=== PATIENT | male | born 1950 | race Caucasian/White ===

== ENCOUNTER → 2018-08-28 | Outpatient (CLI) | payer OTHER ==
--- NOTE | 2018-08-29 15:06 | PATH ---
[facility] [place] [address] PATHOLOGY RPT PROCEDURE Name: MCKENZIE CALDERON Room #: REG JOANIE Willson.#: [id number] ������������������ Admission: 08/28/18 ������������������ Date of : 52 Discharge: Report #: [id number] Path Case #: [id number] [facility] Accession Number: [id number] . 01 Material submitted: . PART A: colon - SIGMOID POLYP X5. Modifiers: sigmoid PART B: rectum - RECTAL POLYP X2 . 01 Clinical history: . Pre-OP DX: Screening Post-OP DX: Polyps . 02 Diagnosis: A. Polyp x5, sigmoid polyp, endoscopic biopsy: - All fragments showing hyperplastic polyp. - Negative for dysplasia. . B. Polyp x2, rectal polyp, endoscopic biopsy: - Largest fragment showing a tubulovillous adenoma; negative for high-grade dysplasia. - Smaller polyps showing tubular adenoma; negative for high-grade dysplasia. - Cauterized margin showing unremarkable mucosa and focal adenomatous mucosa (please see comment). . (IUV:alvina; 08/29/2018) QMS/08/29/2018 . 02 Comment: Please correlate with endoscopic findings for complete removal of these polyps. (IUV:alvina; 08/29/2018) . 02 Electronically signed: . Bettina Danielson MD, Pathologist NPI- [id number] . 01 Gross description: . A. Received in formalin labeled "Mckenzie Calderon, sigmoid polyp," are 5 segments of foley soft tissue measuring 1.3 x 0.9 x 0.3 cm in aggregate dimensions and ranging from 0.3 to 0.5 cm in maximum dimension. The specimen is submitted entirely in cassette A1. . B. Received in formalin labeled "Mckenzie Calderon, rectal polyps," is a 0.9 x 0.6 x 0.6 cm polypoid piece of foley soft tissue. The margin is inked and the tissue is sectioned perpendicular to the margin and submitted in its entirely in cassette B1 and B2. Additionally received in the same [address] [address] PATHOLOGY RPT PROCEDURE Name: MCKENZIE CALDERON Room #: REG [facility].#: [id number] ������������������ Admission: 08/28/18 ������������������ Date of : 52 Discharge: Report #: [id number] Path Case #: [id number] container is a 0.8 x 0.5 x 0.5 cm polypoid piece of foley soft tissue. The margin is inked and the specimen is sectioned perpendicular to the margin and entirely submitted in cassette B3 and B4. Also received in the container is a 0.7 x 0.4 x 0.4 cm polypoid piece of foley soft tissue. The presumed margin is inked and the specimen is sectioned perpendicular to the margin and entirely submitted in cassette B5. (TSD; 08/28/2018) TOB/TOB . 02 Pathologist provided ICD-10: K63.5, D12.8 . 02 CPT . 896026, 445592 Specimen Comment: A courtesy copy of this report has been sent to Specimen Comment: [phone], . Specimen Comment: Report sent to / DR FOY Performed at: [address], [place] [id number] MD Jose Sinha MD Phone: [phone] Performed at: [address] [id number] MD Bettina Danielson MD Phone: [phone]
== END | disposition home or self-care (01) ==
LOC: GI 08:52
DX: Z12.11 Encounter for screening for malignant neoplasm of colon (principal); D12.8 Benign neoplasm of rectum; K63.5 Polyp of colon; K64.8 Other hemorrhoids
CPT/HCPCS: 62110; 62900